=== PATIENT | female | born 1935 | race Caucasian/White ===

== ENCOUNTER → 2017-06-18 | Outpatient (CLI) | payer MEDICARE, MEDICAID ==
[~2017-06-18] MED LIST: ALEN70TA3 PO; ASPI-515 PO; CALC1CAP8 PO; CAPE500T24 PO; DIPH1TAB PO; ENOX100S5 SQ; HYDR-3307 PO; MULT-717 PO; OMEG1CAP48 PO; POTA20TA6 PO; RANI150T8 PO; RED600CA2 PO; RIVA10TA PO
== END | disposition home or self-care (01) ==
LOC: PETCFH 09:48
PROVIDERS: ATTEND Internal Medicine Hematology & Oncology
DX: C79.51 Secondary malignant neoplasm of bone (principal); C50.911 Malignant neoplasm of unspecified site of right female breast
CPT/HCPCS: 78306; A9503

== ENCOUNTER → 2017-06-18 | Outpatient (CLI) | payer MEDICARE, MEDICAID | END | disposition home or self-care (01) | LOC: CFH 09:50 | PROVIDERS: ATTEND Internal Medicine Hematology & Oncology | DX: J90 Pleural effusion, not elsewhere classified (principal); R91.8 Other nonspecific abnormal finding of lung field; R59.0 Localized enlarged lymph nodes; C79.51 Secondary malignant neoplasm of bone; C50.911 Malignant neoplasm of unspecified site of right female breast; Z90.11 Acquired absence of right breast and nipple | CPT/HCPCS: 71260; 74177 ==

== ENCOUNTER → 2017-11-16 | Outpatient (CLI) | payer MEDICARE, MEDICAID ==
[~2017-11-16] MED LIST changes: +OMNIPAQUE 350 MG/ML, 100ML BOTTLE ONE
== END | disposition home or self-care (01) ==
LOC: CFH 13:07
PROVIDERS: ATTEND Internal Medicine Hematology & Oncology
DX: C79.51 Secondary malignant neoplasm of bone (principal); C50.911 Malignant neoplasm of unspecified site of right female breast
CPT/HCPCS: 71260; 74177; Q9967

== ENCOUNTER → 2017-12-04 | Outpatient (CLI) | payer MEDICARE, MEDICAID ==
[~2017-12-04] MED LIST changes: +LIDOCAINE 2%, 20ML ONE; -OMNIPAQUE 350 MG/ML, 100ML BOTTLE ONE
== END | disposition home or self-care (01) ==
LOC: RAD 06:45
PROVIDERS: ATTEND Internal Medicine Hematology & Oncology
DX: C79.51 Secondary malignant neoplasm of bone (principal); J90 Pleural effusion, not elsewhere classified; C50.911 Malignant neoplasm of unspecified site of right female breast; Z98.890 Other specified postprocedural states
CPT/HCPCS: 32555; 71045; 84157; 88112; 88305; 89051; J3490

== ENCOUNTER → 2018-03-18 | Outpatient (CLI) | payer MEDICARE, MEDICAID ==
[~2018-03-18] MED LIST changes: +BENA1TAB52 PO; +LETR2.5T PO; -LIDOCAINE 2%, 20ML ONE; +OMNIPAQUE 350 MG/ML, 100ML BOTTLE ONE; +PALB125C PO; +RANI150T23 PO; -RANI150T8 PO
== END ==
LOC: CFH 11:47
PROVIDERS: ATTEND Internal Medicine Hematology & Oncology
DX: C79.51 Secondary malignant neoplasm of bone (principal); C77.2 Secondary and unspecified malignant neoplasm of intra-abdominal lymph nodes; C50.911 Malignant neoplasm of unspecified site of right female breast; J90 Pleural effusion, not elsewhere classified
CPT/HCPCS: 71260; 74177; Q9967

== ENCOUNTER → 2018-06-08 | Outpatient (CLI) | payer MEDICARE, MEDICAID | END | disposition home or self-care (01) | LOC: RAD 10:52 | PROVIDERS: ATTEND Internal Medicine Hematology & Oncology | DX: C77.2 Secondary and unspecified malignant neoplasm of intra-abdominal lymph nodes (principal); C79.31 Secondary malignant neoplasm of brain; C78.02 Secondary malignant neoplasm of left lung; C78.01 Secondary malignant neoplasm of right lung; C50.911 Malignant neoplasm of unspecified site of right female breast; J90 Pleural effusion, not elsewhere classified | CPT/HCPCS: 71260; 74177; Q9967 ==

== ENCOUNTER → 2018-09-21 | Outpatient (CLI) | payer MEDICARE, MEDICAID ==
[~2018-09-21] MED LIST changes: +VIT1CAPS42 PO
== END | disposition home or self-care (01) ==
LOC: CFH 09:08
PROVIDERS: ATTEND Internal Medicine Hematology & Oncology
DX: C79.51 Secondary malignant neoplasm of bone (principal); C77.2 Secondary and unspecified malignant neoplasm of intra-abdominal lymph nodes; C50.911 Malignant neoplasm of unspecified site of right female breast; N28.1 Cyst of kidney, acquired
CPT/HCPCS: 71260; 74177; Q9967

== ENCOUNTER 2019-02-24 09:03 | Outpatient (CLI) | payer MEDICARE, MEDICAID ==
[~2019-02-24 09:03] MED LIST changes: -OMNIPAQUE 350 MG/ML, 100ML BOTTLE ONE; -RIVA10TA PO; +RIVA10TA2 PO
== END 2019-02-24 23:59 | disposition home or self-care (01) ==
LOC: PETCFH 09:03
PROVIDERS: ATTEND Family Medicine
DX: C79.51 Secondary malignant neoplasm of bone (principal); R16.0 Hepatomegaly, not elsewhere classified; C50.911 Malignant neoplasm of unspecified site of right female breast; C77.2 Secondary and unspecified malignant neoplasm of intra-abdominal lymph nodes
CPT/HCPCS: 71260; 74177; 78306; A9503; Q9967

== ENCOUNTER 2019-05-30 10:10 | Outpatient (CLI) | payer MEDICAID, MEDICARE ==
[~2019-05-30 10:10] MED LIST changes: -HYDR-3307 PO; +HYDR-36 PO; +RANI-467 PO; -RANI150T23 PO
[2019-05-30] MEDS ORDERED: OMNIPAQUE 350 MG/ML, 100ML BOTTLE ONE (15:31)
== END 2019-05-30 23:59 | disposition home or self-care (01) ==
LOC: CFH 10:10
PROVIDERS: ATTEND Internal Medicine Hematology & Oncology
DX: C50.911 Malignant neoplasm of unspecified site of right female breast (principal); C77.2 Secondary and unspecified malignant neoplasm of intra-abdominal lymph nodes; K76.9 Liver disease, unspecified
CPT/HCPCS: 71260; 74177; 82565; Q9967

== ENCOUNTER 2019-09-16 08:04 | Outpatient (CLI) | payer MEDICARE, MEDICAID ==
[2019-09-16] MEDS ORDERED: OMNIPAQUE 350 MG/ML, 100ML BOTTLE ONE (10:47)
== END 2019-09-16 23:59 | disposition home or self-care (01) ==
LOC: RAD 08:04
PROVIDERS: ATTEND Internal Medicine Hematology & Oncology
DX: C79.51 Secondary malignant neoplasm of bone (principal); J90 Pleural effusion, not elsewhere classified; C77.2 Secondary and unspecified malignant neoplasm of intra-abdominal lymph nodes; C78.7 Secondary malignant neoplasm of liver and intrahepatic bile duct; C50.911 Malignant neoplasm of unspecified site of right female breast; L27.1 Localized skin eruption due to drugs and medicaments taken internally; I82.409 Acute embolism and thrombosis of unspecified deep veins of unspecified lower extremity; R06.00 Dyspnea, unspecified; Z86.711 Personal history of pulmonary embolism; Z79.01 Long term (current) use of anticoagulants; Z85.3 Personal history of malignant neoplasm of breast; Z87.891 Personal history of nicotine dependence; N28.1 Cyst of kidney, acquired; K80.80 Other cholelithiasis without obstruction
CPT/HCPCS: 71260; 74177; 78306; A9503; Q9967

== ENCOUNTER → 2019-12-19 | Outpatient (CLI) | payer MEDICARE, MEDICAID ==
[~2019-12-19] MED LIST changes: -LETR2.5T PO; +LETR2.5T3 PO; +OMNIPAQUE 350 MG/ML, 100ML BOTTLE ONE
== END | disposition home or self-care (01) ==
LOC: CFH 11:42
PROVIDERS: ATTEND Internal Medicine Hematology & Oncology
DX: C78.7 Secondary malignant neoplasm of liver and intrahepatic bile duct (principal); C79.51 Secondary malignant neoplasm of bone; C50.911 Malignant neoplasm of unspecified site of right female breast; C77.2 Secondary and unspecified malignant neoplasm of intra-abdominal lymph nodes; J90 Pleural effusion, not elsewhere classified; R91.8 Other nonspecific abnormal finding of lung field
CPT/HCPCS: 71260; 74177; Q9967